=== PATIENT | male | born 1990 | race Caucasian/White ===

== ENCOUNTER 2019-06-13 02:26 | Emergency (ER) | payer OTHER ==
[~2019-06-13] VITALS: Ht 177.8 cm; Wt 81.8 kg
[2019-06-13 03:23] LABS: STREP SCREEN NEGATIVE
[2019-06-13] MEDS ORDERED: TAMIFLU 75MG75 MG PO (04:08)
[2019-06-13 04:35] VITALS: BP 120/69; PULSE 96; TEMP 99.4
== END 2019-06-13 04:40 | disposition home or self-care (01) ==
LOC: COL.ER 02:26
PROVIDERS: Emergency Medicine
DX: J11.1 Influenza due to unidentified influenza virus with other respiratory manifestations (principal)
CPT/HCPCS: J1200; J1885; J2405; J3010; J7030